=== PATIENT | male | born 1960 | race Caucasian/White ===

== ENCOUNTER → 2016-11-14 | Outpatient (CLI) | payer BC ==
[~2016-11-14] MED LIST: ACETAMINOPHEN PO; AMLODIPINE BESYL5 MG PO; BENTYL PO; BENTYL10 MG PO; DIOVAN HCT 160-1 TAB PO; FIBER CHOI1 TAB.CHE1 PO; HYDROCHLOROTHIAZIDE PO; HYDROCODON-ACE1 EAC9 PO; HYDROCODONE PO; HYZAAR 100-12.51 TAB PO; IRON PO; LORTAB 7.5-5001 TAB PO; LOSARTAN PO; LOSARTAN POTASS50 MG PO; NEURONTIN100 MG PO; NEURONTIN300 MG PO; NEURONTIN600 MG PO; PRILOSEC PO; PRILOSEC20 MG PO; PROTONIX PO; SANDOSTATIN LAR20 M1; VICODIN PO; VITAMIN D50000 UNIT PO; ZANAFLEX PO; ZESTRIL5 MG PO; [UNRECOGNIZED DRUG - OTHER] PO; [UNRECOGNIZED DRUG - OTHER] PO
== END | disposition home or self-care (01) ==
LOC: CSSDAY 13:04
DX: C17.9 Malignant neoplasm of small intestine, unspecified (principal); C78.7 Secondary malignant neoplasm of liver and intrahepatic bile duct; Z79.899 Other long term (current) drug therapy
CPT/HCPCS: 96372; J2353

== ENCOUNTER → 2016-12-12 | Outpatient (CLI) | payer BC | END | disposition home or self-care (01) | LOC: CSSDAY 12:51 | DX: C17.9 Malignant neoplasm of small intestine, unspecified (principal); C78.7 Secondary malignant neoplasm of liver and intrahepatic bile duct; Z79.899 Other long term (current) drug therapy | CPT/HCPCS: 96372; J2353 ==

== ENCOUNTER → 2017-01-10 | Outpatient (CLI) | payer BC | END | disposition home or self-care (01) | LOC: CSSDAY 01-09 13:00 | DX: C17.9 Malignant neoplasm of small intestine, unspecified (principal); C78.7 Secondary malignant neoplasm of liver and intrahepatic bile duct; Z79.899 Other long term (current) drug therapy | CPT/HCPCS: 96372; J2353 ==

== ENCOUNTER → 2017-02-07 | Outpatient (CLI) | payer BC | END | disposition home or self-care (01) | LOC: CSSDAY 10:00 | DX: C17.9 Malignant neoplasm of small intestine, unspecified (principal); C78.7 Secondary malignant neoplasm of liver and intrahepatic bile duct; Z79.899 Other long term (current) drug therapy | CPT/HCPCS: 96372; J2353 ==

== ENCOUNTER → 2017-03-10 | Outpatient (CLI) | payer BC | END | disposition home or self-care (01) | LOC: CSSDAY 03-07 13:00 | DX: C17.9 Malignant neoplasm of small intestine, unspecified (principal); C78.7 Secondary malignant neoplasm of liver and intrahepatic bile duct; Z79.899 Other long term (current) drug therapy | CPT/HCPCS: 96372; J2353 ==